=== PATIENT | male | born 1955 | race Caucasian/White ===

== ENCOUNTER 2021-01-09 19:15 | Emergency (ER) | payer OTHER ==
[2021-01-09] MEDS ORDERED: Ondansetron 4 MG Tab.DIS PO ONE (19:46)
[2021-01-09] MEDS ORDERED: Meclizine 25 MG Tab PO ONE (19:51)
--- NOTE | 2021-01-09 19:57 | EDM.PDOC ---
ED HPI GENERAL MEDICAL PROBLEM - General Chief Complaint: Gastrointestinal Problem Stated Complaint: DIZZY,NAUSEA, DIAHRHEA,VOMIT Time Seen by Provider: 01/09/21 19:40 Source of Information: Reports: Patient, Old Records, RN History Limitations: Reports: No Limitations - History of Present Illness INITIAL COMMENTS - FREE TEXT/NARRATIVE: 65 yo male presents with his for abrupt onset of vertigo with nausea, vomiting, and a little diarrhea. He is less dizzy now, but not resolved. No hx of the same. No hematemesis or hematochezia. No fever or BEE. Here with his . Onset: Today, Sudden Onset Date: 01/09/21 Duration: Minutes:, Improving Location: Reports: Head, Abdomen Quality: Reports: Other (no pain) Severity: Moderate Improves with: Reports: Other (some better with time.) Worsens with: Reports: Other (unsure) Context: Reports: Other (See HPI) Associated Symptoms: Reports: Nausea/Vomiting. 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: Other (see below) (none) denies pain Pain Score (Numeric/FACES): 0 - Related Data Allergies Allergy/AdvReac Type Severity Reaction Status Date / Time No Known Allergies Allergy Verified 01/09/21 19:32 Home Meds: Home Meds Aspirin [Low Dose Aspirin EC] 81 mg PO DAILY 01/09/21 [History] Magnesium Oxide [Magnesium] 200 mg PO BEDTIME 01/09/21 [History] Multivitamin [Multi-Vitamin Daily] 1 tab PO BEDTIME 01/09/21 [History] atorvaSTATin Calcium [Atorvastatin Calcium] 80 mg PO BEDTIME 01/09/21 [History] ED ROS GENERAL - Review of Systems Review Of Systems: See Below Constitutional: Reports: No Symptoms HEENT: Reports: No Symptoms, Vertigo Respiratory: Reports: No Symptoms Cardiovascular: Reports: No Symptoms Endocrine: Reports: No Symptoms GI/Abdominal: Reports: Diarrhea (not severe), Nausea, Vomiting : Reports: No Symptoms Musculoskeletal: Reports: No Symptoms Skin: Reports: No Symptoms Neurological: Reports: Dizziness (vertigo) ED EXAM, DIZZINESS - Physical Exam Exam: See Below Exam Limited By: No Limitations General Appearance: Alert, WD/WN, No Apparent Distress Eye Exam: Bilateral Eye: EOMI, Normal Inspection, Nystagmus (on rightward gaze), PERRL Nystagmus: reproducible Ears: Normal External Exam, Normal Canal, Hearing Grossly Normal, Normal TMs Nose: Normal Inspection, No Blood Throat/Mouth: Normal Inspection, Normal Lips, Normal Oropharynx, Normal Voice, No Airway Compromise Head Exam: Atraumatic, Normocephalic Neck: Normal Inspection Respiratory/Chest: No Respiratory Distress, Lungs Clear, Normal Breath Sounds, No Accessory Muscle Use Cardiovascular: Regular Rate, Rhythm, No Edema GI/Abdominal: Normal Bowel Sounds, Soft, Non-Tender, No Distention Neurological: Alert, Normal Mood/Affect, Normal Dorsiflexion, CN II-XII Intact, No Motor/Sensory Deficits, Oriented x 3 Back Exam: Normal Inspection. No: CVA Tenderness (R), CVA Tenderness (L) Extremities: Normal Inspection, Normal Range of Motion, Non-Tender, No Pedal Edema Psychiatric: Normal Affect, Normal Mood Skin Exam: Warm, Dry, Intact, Normal Color, No Rash Course - Vital Signs Last Recorded V/S: Last Vital Signs Temp 36.7 C 01/09/21 20:14 Pulse 62 01/09/21 20:14 Resp 12 01/09/21 20:14 BP 117/65 01/09/21 20:14 Pulse Ox 98 01/09/21 20:14 - Orders/Labs/Meds Meds: Medications Discontinued Medications Generic Name Dose Route Start Last Admin Trade Name Philippq PRN Reason Stop Dose Admin Meclizine HCl 25 mg 01/09/21 19:51 01/09/21 20:12 Meclizine 25 Mg Tab PO 01/09/21 19:52 25 mg ONETIME ONE Administration Ondansetron HCl 4 mg 01/09/21 19:46 01/09/21 20:12 Ondansetron 4 Mg Tab.Dis PO 01/09/21 19:47 4 mg ONETIME ONE Administration - Re-Assessments/Exams Free Text/Narrative Re-Assessment/Exam: 01/09/21 21:51 Feels much better after tx. Departure - Departure Time of Disposition: 21:52 Disposition: Home, Self-Care 01 Condition: Good Clinical Impression: BPV (benign positional vertigo) Qualifiers: Laterality: right Qualified Code(s): H81.11 - Benign paroxysmal vertigo, right ear - Discharge Information *PRESCRIPTION DRUG MONITORING PROGRAM REVIEWED*: Not Applicable *COPY OF PRESCRIPTION DRUG MONITORING REPORT IN PATIENT THOMPSON: Not Applicable Instructions: Benign Positional Vertigo Referrals: Leo Jurado MD [Primary Care Provider] - Forms: ED Department Discharge Additional Instructions: Use meclizine as directed for vertigo. Use Zofran as directed for nausea control. Recheck as needed. Sepsis Event Note (ED) - Focused Exam Vital Signs: Vital Signs Temp Pulse Resp BP Pulse Ox 01/09/21 20:14 36.7 C 62 12 117/65 98 01/09/21 19:38 36.7 C 62 12 117/65 98
== END 2021-01-09 22:01 | disposition home or self-care (01) ==
LOC: JP.ED 19:15
DX: H81.11 Benign paroxysmal vertigo, right ear (principal); Z79.82 Long term (current) use of aspirin
CPT/HCPCS: 99283; A9270